=== PATIENT | male | born 1960 | race Caucasian/White ===

== ENCOUNTER 2022-04-22 20:32 | Inpatient (IN) ==
[2022-04-22] MEDS ORDERED: NS 1,000 ML IV 1,000 ML IV ONE (20:49)
--- NOTE | 2022-04-22 20:49 | DR.UPM ---
HPI Time Seen Time Seen by Provider: 04/22/22 20:49 Complaint Chief Complaint Doctors Comments: 62 y/o male presents for evaluation. Ill past week with sinnuscongestion, cough. PCP treated with an antibiotic. + worsened tonight. + fever, chills, confusion, weakness. + incontinent of urine tonight (couldn't get to the bathroom in time). + cough, not productive, + muscle pain, aches. No nausea, vomiting, diarrhea. No rash. Has had recurrent headache over the past few months. Reviewed Nurses Notes Reviewed: Yes Source History Provided: Patient and Family Member ROS Review of Systems Constitutional: Chills, Fever and Weakness Eyes: No Symptoms Reported ENTM: No Symptoms Reported Respiratoy: Non-Productive Cough Cardiovascular: No Symptoms Reported Gastrointestinal/Abdominal: No Symptoms Reported Genitourinary: No Symptoms Reported Neurological: Headache and Weakness Musculoskeletal: Muscle Pain Integumentary: No Symptoms Reported Hematologic/Lymphatic: No Symptoms Reported Psychiatric: No Symptoms Reported All Other Systems: Reviewed and Negative PE Vital Signs Vitals: Temperature 99.5 F Pulse Rate 113 Respiratory Rate 19 Blood Pressure 111/61 O2 Sat by Pulse Oximetry 95 COURSE Treatment Treatment: 62 y/o male with weakness, fever. W/u initiated. Given IV fluids, Po tylenol. Pt is oriented, cooperative. Labs overall acceptable. Is + for Covid. givne IV monoclonal antibodies. Given toradol for fever, discomfort. CXR clear. Recommend admission for further hydration, observation. Discussed with Dr Wong, will admit. ROR Labs Reviewed Laboratory Results Reviewed?: Yes Result Diagrams: 04/22/22 20:45 04/22/22 20:45 Laboratory: WBC 11.5 X10^3/uL (3.6-10.0) H 04/22/22 20:45 RBC 4.99 X10^6/uL (4.7-6.0) 04/22/22 20:45 Hgb 14.8 g/dL (13.5-18.0) 04/22/22 20:45 Hct 42.9 % (42.0-54.0) 04/22/22 20:45 MCV 86.0 fL (80.0-100.0) 04/22/22 20:45 MCH 29.6 pg (27.0-34.0) 04/22/22 20:45 MCHC 34.5 g/dL (33.0-35.0) 04/22/22 20:45 RDW 12.9 % (11.6-16.5) 04/22/22 20:45 Plt Count 216 X10^3/uL (150.0-450.0) 04/22/22 20:45 MPV 7.5 fL (7.4-11.0) 04/22/22 20:45 Neut % (Auto) 82.0 % (42.0-75.0) H 04/22/22 20:45 Lymph % (Auto) 7.8 % (21.0-51.0) L 04/22/22 20:45 [place] % (Auto) 9.5 % (0.0-13.0) 04/22/22 20:45 Eos % (Auto) 0.4 % (0.9-2.9) L 04/22/22 20:45 Baso % (Auto) 0.3 % (0.2-1.0) 04/22/22 20:45 Neut # (Auto) 9.4 x10^3/uL (2.2-4.8) H 04/22/22 20:45 Lymph # (Auto) 0.9 X10^3/uL (1.3-2.9) L 04/22/22 20:45 [place] # (Auto) 1.1 x10^3/uL (0.3-0.8) H 04/22/22 20:45 Eos # (Auto) 0.0 x10^3/uL (0.0-0.2) 04/22/22 20:45 Baso # (Auto) 0.0 X10^3/uL (0.0-0.1) 04/22/22 20:45 Absolute Nucleated RBC 0.0 /100WBC 04/22/22 20:45 Sodium 133 mmol/L (136-145) L 04/22/22 20:45 Corrected Sodium 138 mmol/L (136-145) 04/22/22 20:45 Potassium 4.6 mmol/L (3.5-5.1) 04/22/22 20:45 Chloride 95 mmol/L (98-107) L 04/22/22 20:45 Carbon Dioxide 27.5 mmol/L (21-32) 04/22/22 20:45 BUN 11 mg/dL (7-18) 04/22/22 20:45 Creatinine 1.45 mg/dL (0.70-1.30) H 04/22/22 20:45 Est GFR (MDRD) Af Amer > 60 (>60) 04/22/22 20:45 Est GFR (MDRD) Non-Af 52 (>60) L 04/22/22 20:45 Glucose 294 mg/dL (65-99) H 04/22/22 20:45 Lactic Acid 1.4 mmol/L (0.4-2.0) 04/22/22 20:45 Calcium 9.1 mg/dL (8.5-10.1) 04/22/22 20:45 Corrected Calcium TNP 04/22/22 20:45 Total Bilirubin 0.40 mg/dL (0.2-1.0) 04/22/22 20:45 AST 25 Units/L (15-37) 04/22/22 20:45 ALT 31 Units/L (12-78) 04/22/22 20:45 Alkaline Phosphatase 57 Units/L (46-116) 04/22/22 20:45 Troponin I High Sens 4.8 ng/L (4.0-60.0) 04/22/22 20:45 Total Protein 7.7 g/dL (6.4-8.2) 04/22/22 20:45 Albumin 4.4 g/dL (3.4-5.0) 04/22/22 20:45 Globulin 3.3 g/dL (2.5-4.5) 04/22/22 20:45 Albumin/Globulin Ratio 1.3 Ratio (1.1-2.1) 04/22/22 20:45 Lipase 122 Units/L (73-393) 04/22/22 20:45 Specimen Type Clean catch urine 04/22/22 21:12 Urine Color Yellow (YELLOW) 04/22/22 21: Urine Appearance Clear (CLEAR) 04/22/22 21: Urine pH 8.0 (5.0 - 8.0) 04/22/22 21:12 Ur Specific [place] 1.020 (1.000-1.030) 04/22/22 21:12 Urine Protein Negative (NEGATIVE) 01/12/23 21:12 Urine Glucose (UA) 3+ (NEGATIVE) 04/22/22 21:12 Urine Ketones 1+ (NEGATIVE) 04/22/22 21:12 Urine Blood Negative (NEGATIVE) 04/22/22 21:12 Urine Nitrite Negative (NEGATIVE) 04/22/22 21:12 Urine Bilirubin Negative (NEGATIVE) 04/22/22 21:12 Urine Urobilinogen Normal (NORMAL) 04/22/22 21:12 Ur Leukocyte Esterase Negative (NEGATIVE) 04/22/22 21:12 SARS-CoV-2 (PCR) Positive (NEGATIVE) A 04/22/22 20:51 Influenza Type A (PCR) Negative (NEGATIVE) 04/22/22 20:51 Influenza Type B (PCR) Negative (NEGATIVE) 04/22/22 20:51 RSV (PCR) Negative (NEGATIVE) 04/22/22 20:51 XRAY XRAY Interpreted by: Both X-ray Results: CXR clear. CT head without acute abnormalities EKG Rate: 129 [place]: RAD Rhythm: ST ST: Nonsp Opioid Opioid Risk Tool Total: 0 Total Score Risk Category: Low Risk Copyright: Kelvin MILLER predicting aberrant behaviors Discharge Plan Diagnosis Discharge Problem: COVID, Altered mental status Discharge Plan Patient Disposition: 09 ADMITTED INPATIENT Condition: Stable Prescriptions: No Action glyburide 5 mg tablet 2 tab PO BID benzonatate 200 mg capsule 1 cap PO Q8H PRN clopidogrel 75 mg tablet 1 tab PO QDAY alprazolam 0.5 mg tablet 1 tab PO BID methocarbamol 750 mg tablet 1 tab PO BID PRN hydrocodone-acetaminophen 7.5-325 mg tablet 1 tab PO BID PRN (Reason: pain) pantoprazole 40 mg tablet,delayed release (DR/EC) 1 tab PO BID metformin 1,000 mg tablet 1 tab PO BID gabapentin 300 mg capsule 1 cap PO TID lisinopril-hydrochlorothiazide 20-25 mg tablet 1 tab PO QDAY gqgkowvl-budusoyfp-YV 3.5-10,000-1 mg/mL-unit/mL-% drops,suspension 4 drp OTIC (EAR) TID rosuvastatin 10 mg tablet 1 tab PO QPM metoprolol tartrate 25 mg tablet 1 tab PO QDAY zolpidem 12.5 mg tablet,ext release multiphase 1 tab PO QPM PRN Health Concerns: Post Hospitalization: new medications and changes needed to prevent readmission or further decline. Pt educated and given instructions on all concerns. Plan of Treatment: Continue with present treatment and follow up plan. Pt is to keep follow up appointment as instructed and take medications as ordered. Orders to Discharge Patient Discharge Orders: Transfer (Routine); Ordered 04/22/22 Ordered By: Magdi Landin Follow ups/Referrals Follow ups/Referrals: [facility] [Primary Care Provider] - 3 days
[2022-04-22] MEDS ORDERED: TYLENOL 500 MG TAB EXTRA STRENGTH PO ONE ×2 (20:51→20:56)
[2022-04-22 20:53] VITALS: BMI 25.0
[2022-04-22] MEDS ORDERED: NS 1,000 ML IV 1,000 ML ONE (20:56)
--- NOTE | 2022-04-22 21:00 | EKG ---
Test Reason : confusion Blood Pressure : */* mmHG Vent. Rate : 129 BPM Atrial Rate : 129 BPM P-R Int : 154 ms QRS Dur : 84 ms QT Int : 284 ms P-R-T Axes : 52 240 42 degrees QTc Int : 416 ms Sinus tachycardia Right superior axis deviation Possible Anterior infarct , age undetermined Abnormal ECG No previous ECGs available Confirmed by Cristiano Berumen ([id number]) on 04/25/2022 9:22:26 AM Referred By: Confirmed By: Cristiano Berumen
[2022-04-22 21:07] LABS: BASOPHILS % (AUTO) 0.3 % (0.2-1.0); EOSINOPHILS % (AUTO) 0.4 % (0.9-2.9); HEMATOCRIT 42.9 % (42.0-54.0); HEMOGLOBIN 14.8 g/dL (13.5-18.0); LYMPHOCYTES # (AUTO) 0.9 X10^3/uL (1.3-2.9); LYMPHOCYTES % (AUTO) 7.8 % (21.0-51.0); MEAN CORPUSCULAR HEMOGLOBIN 29.6 pg (27.0-34.0); MEAN CORPUSCULAR HGB CONC 34.5 g/dL (33.0-35.0); MEAN PLATELET VOLUME 7.5 fL (7.4-11.0); MONOCYTES # (AUTO) 1.1 x10^3/uL (0.3-0.8); MONOCYTES % (AUTO) 9.5 % (0.0-13.0); NEUTROPHILS # (AUTO) 9.4 x10^3/uL (2.2-4.8); RED BLOOD COUNT 4.99 X10^6/uL (4.7-6.0); RED CELL DISTRIBUTION WIDTH 12.9 % (11.6-16.5); WHITE BLOOD COUNT 11.5 X10^3/uL (3.6-10.0)
[2022-04-22 21:18] LABS: APPEARANCE,URINE CLEAR (CLEAR); BILIRUBIN,URINE NEGATIVE (NEGATIVE); BLOOD/HEMOGLOBIN,URINE NEGATIVE (NEGATIVE); COLOR,URINE YELLOW (YELLOW); GLUCOSE, URINE 3+ (NEGATIVE); KETONES,URINE 1+ (NEGATIVE); LEUKOCYTE ESTERASE ,URINE NEGATIVE (NEGATIVE); NITRITES,URINE NEGATIVE (NEGATIVE); PROTEIN,URINE NEGATIVE (NEGATIVE); UROBILINOGEN,URINE NORMAL (NORMAL)
[2022-04-22 21:24] LABS: ALANINE AMINOTRANSFERASE 31 Units/L (12-78); ALBUMIN 4.4 g/dL (3.4-5.0); ALKALINE PHOSPHATASE 57 Units/L (46-116); ASPARTATE AMINO TRANSFERASE 25 Units/L (15-37); BLOOD UREA NITROGEN 11 mg/dL (7-18); CALCIUM 9.1 mg/dL (8.5-10.1); CARBON DIOXIDE 27.5 mmol/L (21-32); CHLORIDE 95 mmol/L (98-107); COR NA(FOR HYPERGLY) 138 mmol/L (136-145); CREATININE 1.45 mg/dL (0.70-1.30); LIPASE 122 Units/L (73-393); SODIUM 133 mmol/L (136-145); TOTAL PROTEIN 7.7 g/dL (6.4-8.2); eGFR NON BLACK RACES 52 (>60)
[2022-04-22 21:27] LABS: LACTIC ACID 1.4 mmol/L (0.4-2.0)
[2022-04-22] MEDS ORDERED: TORADOL 30 MG VIAL IVP ONE (21:51)
[2022-04-22] MEDS ORDERED: TORADOL 30 MG VIAL ONE (21:51)
--- NOTE | 2022-04-22 22:01 | CT ---
EXAM: HEAD CT WITHOUT INTRAVENOUS CONTRASTHISTORY: Urinary incontinence. Confusion. Cold and cough 1 week ago.TECHNIQUE: Spiral axial CT images are obtained through the brain without the administration of intravenous contrast. Sagittal and coronal reformatted images are reconstructed.DOSIMETRY: Total DLP 888.54 mGycm; CTDI 48 mGyCOMPARISON: None available.FINDINGS:There is mild diffuse cerebral cortical atrophy. The centrum semiovale, basal ganglia, cerebellum, and brainstem are otherwise grossly unremarkable for a noncontrast CT scan. Nonspecific pineal gland calcification is seen.There is no acute intracranial hemorrhage, discernible acute infarction, mass lesion, midline shift, or hydrocephalus seen. No extra-axial mass or abnormal fluid collection is seen.The calvarium is intact. Status post bilateral antrectomies/infundibulectomies. There is mild chronic right maxillary sinusitis marked by mucoperiosteal thickening. The partially imaged paranasal sinuses, middle ear cavities, and mastoid air cells are otherwise clear.IMPRESSION:1. No intracranial hemorrhage, discernible acute infarction, mass lesions, midline shift, mass effect or hydrocephalus seen.2. Mild diffuse cerebral cortical atrophy.3. Consider followup evaluation with MRI /MRA imaging for further assessment as clinically warranted.4. Status post bilateral antrectomies/infundibulectomies.5. Mild chronic right maxillary sinusitis marked by mucoperiosteal thickening.Electronically signed by: Klarissa Nava (Apr 22, 2022 22:00:05)
[2022-04-22] MEDS ORDERED: BEBTELOVIMAB INJ IVP ONE (22:38)
[2022-04-22] MEDS ORDERED: BEBTELOVIMAB INJ ONE (22:48)
[2022-04-23] MEDS ORDERED: TESSALON PERLES PO PRN (00:32)
[2022-04-23] MEDS: D5 1/2 NS 1,000 ML 1,000 ML IV SCH ×3 (01:00→16:37)
--- NOTE | 2022-04-23 01:12 | RAD ---
HISTORYWIFE STATING PT HAVING TROUBLE HOLDING HIS URINE, CONFUSED AND VERY WEAK. STATES HE WAS TREATED FOR A COLD AND COUGH ABOUT 1 WEEK AGO Relevant Clinical InformationSTUDYCHEST, 1 VIEWCOMPARISONFINDINGSThe trachea is midline. The cardiac silhouette is unremarkable. The lungs are grossly clear without focal infiltrate or effusion. The bony thorax is unremarkable.IMPRESSIONNo acute cardiopulmonary findings .Electronically signed by: Sebastien Mcfadden (Apr 23, 2022 01:11:37)
[2022-04-23] MEDS: LOPRESSOR TAB 25 MG PO SCH ×2 (01:50→09:31)
[2022-04-23] MEDS: PLAVIX PO SCH ×2 (01:51→09:31)
[2022-04-23] MEDS: ZESTORETIC 20/25 MG PO SCH ×2 (01:52→09:30)
[2022-04-23] MEDS: SOLU-Medrol 40 MG VIAL IVP SCH ×3 (05:42→21:21)
[2022-04-23] MEDS: NEURONTIN CAP 300 MG PO SCH ×3 (05:43→21:21)
[2022-04-23] MEDS ORDERED: NovoLIN R (or HumuLIN R) ONE (06:04)
[2022-04-23] MEDS: NovoLIN R (or HumuLIN R) SUBCUT PRN ×5 (06:09→23:10)
[2022-04-23 06:51] LABS: BASOPHILS % (AUTO) 0.3 % (0.2-1.0); EOSINOPHILS % (AUTO) 0.2 % (0.9-2.9); HEMATOCRIT 36.1 % (42.0-54.0); HEMOGLOBIN 12.3 g/dL (13.5-18.0); LYMPHOCYTES # (AUTO) 0.9 X10^3/uL (1.3-2.9); LYMPHOCYTES % (AUTO) 10.8 % (21.0-51.0); MEAN CORPUSCULAR HEMOGLOBIN 29.7 pg (27.0-34.0); MEAN CORPUSCULAR HGB CONC 34.2 g/dL (33.0-35.0); MEAN PLATELET VOLUME 7.9 fL (7.4-11.0); MONOCYTES # (AUTO) 0.9 x10^3/uL (0.3-0.8); MONOCYTES % (AUTO) 10.8 % (0.0-13.0); NEUTROPHILS # (AUTO) 6.3 x10^3/uL (2.2-4.8); NEUTROPHILS % (AUTO) 77.9 % (42.0-75.0); RED BLOOD COUNT 4.15 X10^6/uL (4.7-6.0); RED CELL DISTRIBUTION WIDTH 13.1 % (11.6-16.5); WHITE BLOOD COUNT 8.1 X10^3/uL (3.6-10.0)
[2022-04-23 07:06] LABS: ALANINE AMINOTRANSFERASE 23 Units/L (12-78); ALBUMIN 3.4 g/dL (3.4-5.0); ALKALINE PHOSPHATASE 42 Units/L (46-116); ASPARTATE AMINO TRANSFERASE 19 Units/L (15-37); BLOOD UREA NITROGEN 17 mg/dL (7-18); CALCIUM 7.9 mg/dL (8.5-10.1); CARBON DIOXIDE 26.5 mmol/L (21-32); CHLORIDE 98 mmol/L (98-107); COR NA(FOR HYPERGLY) 139 mmol/L (136-145); CREATININE 1.42 mg/dL (0.70-1.30); SODIUM 133 mmol/L (136-145); TOTAL PROTEIN 6.1 g/dL (6.4-8.2); eGFR NON BLACK RACES 53 (>60)
[2022-04-23] MEDS ORDERED: GLUCOPHAGE ONE ×2 (08:02→19:05)
[2022-04-23] MEDS ORDERED: PATIENT'S HOME MEDICATION (Alprazolam 0.5 mg tablet) PO SCH (09:00)
[2022-04-23] MEDS: PULMICORT NEB TX 0.5 MG NEB SCH ×2 (09:00→21:00)
[2022-04-23] MEDS: PROTONIX TAB 40 MG PO SCH ×2 (09:30→20:33)
[2022-04-23] MEDS: XANAX PO SCH ×2 (09:30→20:32)
[2022-04-23] MEDS: DIABETA PO SCH ×2 (09:30→20:31)
[2022-04-23] MEDS: GLUCOPHAGE PO SCH ×2 (09:30→20:31)
[2022-04-23] MEDS ORDERED: REMDESIVIR 200 MG in NS 250 ML IV 250 ML IV ONE (09:39)
[2022-04-23] MEDS: LOVENOX INJ 30 MG SYR SC SCH ×2 (11:00→20:35)
[2022-04-23] MEDS: DIFLUCAN PO SCH (11:01)
[2022-04-23] MEDS: LANTUS SC SCH (11:01)
[2022-04-23] MEDS: DUONEB 0.5 MG/3 MG (3 mL) NEB SCH ×4 (13:00→21:00)
[2022-04-23] MEDS ORDERED: CRESTOR TAB 10 MG PO ONE (19:05)
[2022-04-23] MEDS ORDERED: NS 1,000 ML IV 1,000 ML ONE (19:35)
[2022-04-23] MEDS ORDERED: SNACK - Diabetic Appropriate PO SCH ×2 (20:00)
[2022-04-23] MEDS: NS 1,000 ML IV 1,000 ML IV SCH (20:30)
[2022-04-23] MEDS: SNACK - Diabetic Appropriate PO SCH (20:33)
[2022-04-23] MEDS: CRESTOR TAB 10 MG PO SCH (20:34)
--- NOTE | 2022-04-24 01:07 | DR.H&P ---
H&P - History & Physical for Day of: H&P Date: 04/22/22 - Chief Complaint Chief Complaint: SINUS CONGESTION, COUGH, BODY ACHES, FEVER, CHILLS, AMS, WEAKNESS, HEADACHE, AND INCONTINENCE OF URINE - History of Present Illness History of Present Illness: IS A 62 YEAR OLD PATIENT OF [facility]. HE PRESENTED TO THE ER WITH COMPLAINTS OF SINUS CONGESTION, COUGH, BODY ACHES, FEVER, CHILLS, AMS, WEAKNESS, HEADACHE, AND INCONTINENCE OF URINE. HE DENIES NAUSEA, VOMITING, DIARRHEA, OR RASH. SYMPTOMS STARTED ABOUT A WEEK AGO. HE WAS TREATED FOR BRONCITIS 1 WEEK AGO WITH ORAL STEROIDS AND ANTIBIOTICS. HIS PMH INCLUDES: CAD, HYPERLIPIDEMIA, HTN, DM II, CARDIAC STENTS, EYE SURGERY. ON ARRIVAL TO THE HOSPTIAL, VITALS WERE: 101.2-145-18-92%RA-121/73. LABS WERE OBTAINED. WBC 11.5, RBC 4.99, HGB 14.8, HCT 42.9, PLT COUNT 216, SODIUM 133, POTASSIUM 4.6, CHLORIDE 95, BUN 11, CREATININE 1.45, GLUCOSE 294, LACTIC ACID 1.4, CALCIUM 9.1, TOTAL BILI 0.40, AST 25, ALT 31, ALK PHOS 57, TOTAL PROTEIN 7.7, ALBUMIN 4.4, LIPASE 122, TROPONIN 4.8. URINALYSIS OBAINED AND IS UNREMARKABLE. COVID-19 POSITIVE. INFLUENZA AND RSV NEGATIVE. BLOOD CULTURES WERE SET UP. A CHEST XRAY WAS OBTAINED AND REVEALED: The trachea is midline. The cardiac silhouette is unremarkable. The lungs are grossly clear without focal infiltrate or effusion. The bony thorax is unremarkable. A BRAIN CT WAS OBTAINED DUE TO AMS AND REVEALED: 1. No intracranial hemorrhage, discernible acute infarction, mass lesions, midline shift, mass effect or hydrocephalus seen. 2. Mild diffuse cerebral cortical atrophy. 3. Consider follow-up evaluation with MRI /MRA imaging for further assessment as clinically warranted. 4. Status post bilateral antrectomies/infundibulectomies. 5. Mild chronic right maxillary sinusitis marked by mucoperiosteal thickening. IN THE ER, HE WAS GIVEN A NORMAL SALINE BOLUS, TYLENOL 1G IV X 1, TORADOL 30MG IV X 1, BEBTELOVIMAB IV X 1. HE WAS ADMITTED TO THE HOSPITAL OBSERVATION STATUS FOR FURTHER EVALUATION AND TREATMENT OF COVID-19, BRONCHOPNEUMONIA, AND ALTERED MENTAL STATUS. - Past Medical History Past Medical History: Coronary Artery Disease, Diabetes, Dyslipidemia, Hypertension - Past Surgical History Surgical History: Angioplasty/Stents - Family History Family Medical History: Diabetes Mellitus - Social History Does patient currently use any type of tobacco product: No Have you used tobacco products in the last 12 months: No Type of Tobacco Use: None Does any household member use tobacco: No Alcohol Use: None Drug Use: None - Medications Home Medications: Penicillins Allergy (Verified 04/22/22 20:54) CONTINUE taking the following medications alprazolam 0.5 mg tablet 1 tab PO BID 04/22/22 [History] benzonatate 200 mg capsule 1 cap PO Q8H PRN 04/22/22 [History] clopidogrel 75 mg tablet 1 tab PO QDAY 04/22/22 [History] gabapentin 300 mg capsule 1 cap PO TID 04/22/22 [History] glyburide 5 mg tablet 2 tab PO BID 04/22/22 [History] hydrocodone 7.5 mg-acetaminophen 325 mg tablet 1 tab PO BID PRN pain 04/22/22 [History] lisinopril 20 mg-hydrochlorothiazide 25 mg tablet 1 tab PO QDAY 04/22/22 [History] metformin 1,000 mg tablet 1 tab PO BID 04/22/22 [History] methocarbamol 750 mg tablet 1 tab PO BID PRN 04/22/22 [History] metoprolol tartrate 25 mg tablet 1 tab PO QDAY 04/22/22 [History] ypbanzlh-nihzxppwv-ofohujvtn 3.5 mg-10,000 unit/mL-1 % ear drops,susp 4 drp otic (ear) TID 04/22/22 [History] pantoprazole 40 mg tablet,delayed release 1 tab PO BID 04/22/22 [History] rosuvastatin 10 mg tablet 1 tab PO QPM cholesterol 04/22/22 [History] zolpidem 12.5 mg tablet,extended release,multiphase 1 tab PO QPM PRN 04/22/22 [History] - Review of Systems Constitutional: Fever, Chills, Weakness Eyes: No Symptoms Reported ENT: Nose Congestion Respiratory: Shortness of Breath, SOB with Excertion Cardiovascular: Light Headedness Gastrointestinal: No Symptoms Reported Genitourinary: No Symptoms Reported Musculoskeletal: No Symptoms Reported Skin: No Symptoms Reported Neurological: Weakness, Confusion - Physical Exam Vital Signs: Temperature 97.8 F Pulse Rate [Left Brachial] 110 Pulse Rate 84 Respiratory Rate 20 Blood Pressure [Left Arm] 102/52 Blood Pressure 110/60 O2 Sat by Pulse Oximetry 93 Oriented: Normal Eyes: Normal Ear: Normal Nose: Discharge Throat: Normal Respiratory: Wheezes Throughout Cardiovascular: Normal : Normal Auscultation: Bowel Sounds: Normal Palpation: Normal Tenderness: Normal Skin: Normal Musculoskeletal: Normal Psychiatric: Normal Mood Description: Calm Affect: Normal Speech Pattern: Clear - Assessment/Plan (1) Bronchopneumonia Status: Acute (2) COVID Status: Acute (3) Altered mental status Status: Acute - Allergies Allergies/Adverse Reactions: Allergies Allergy/AdvReac Type Severity Reaction Status Date / Time Penicillins Allergy Verified 04/22/22 20:54
[2022-04-24] MEDS: NS 1,000 ML IV 1,000 ML IV SCH ×3 (05:28→20:28)
[2022-04-24] MEDS: NEURONTIN CAP 300 MG PO SCH ×3 (05:29→21:12)
[2022-04-24] MEDS: SOLU-Medrol 40 MG VIAL IVP SCH ×3 (05:29→20:27)
[2022-04-24] MEDS: NovoLIN R (or HumuLIN R) SUBCUT PRN ×4 (05:41→21:40)
[2022-04-24 06:50] LABS: BASOPHILS % (AUTO) 0.1 % (0.2-1.0); HEMOGLOBIN 11.4 g/dL (13.5-18.0); LYMPHOCYTES # (AUTO) 0.6 X10^3/uL (1.3-2.9); LYMPHOCYTES % (AUTO) 6.4 % (21.0-51.0); MEAN CORPUSCULAR HEMOGLOBIN 30.4 pg (27.0-34.0); MEAN CORPUSCULAR HGB CONC 35.4 g/dL (33.0-35.0); MEAN CORPUSCULAR VOLUME 85.9 fL (80.0-100.0); MEAN PLATELET VOLUME 7.7 fL (7.4-11.0); MONOCYTES # (AUTO) 0.3 x10^3/uL (0.3-0.8); MONOCYTES % (AUTO) 3.3 % (0.0-13.0); NEUTROPHILS # (AUTO) 8.7 x10^3/uL (2.2-4.8); NEUTROPHILS % (AUTO) 90.2 % (42.0-75.0); RED BLOOD COUNT 3.73 X10^6/uL (4.7-6.0); WHITE BLOOD COUNT 9.7 X10^3/uL (3.6-10.0)
[2022-04-24 07:08] LABS: BAND NEUTROPHILS % 3 % (0-10); PLATELET MORPHOLOGY COMMENT NORMAL (NORMAL)
[2022-04-24 07:16] LABS: SODIUM 134 mmol/L (136-145)
[2022-04-24 07:17] LABS: ALANINE AMINOTRANSFERASE 21 Units/L (12-78); ASPARTATE AMINO TRANSFERASE 16 Units/L (15-37); BLOOD UREA NITROGEN 20 mg/dL (7-18); CALCIUM 7.6 mg/dL (8.5-10.1); CARBON DIOXIDE 24.4 mmol/L (21-32); CHLORIDE 98 mmol/L (98-107); COR NA(FOR HYPERGLY) 140 mmol/L (136-145); CREATININE 1.48 mg/dL (0.70-1.30); eGFR NON BLACK RACES 51 (>60)
[2022-04-24 07:18] LABS: ALBUMIN 3.1 g/dL (3.4-5.0); ALKALINE PHOSPHATASE 38 Units/L (46-116); COR CA(FOR HYPOALB) 8.3 mg/dL (8.5-10.1)
[2022-04-24] MEDS ORDERED: GLUCOPHAGE ONE ×2 (07:55→19:47)
[2022-04-24] MEDS: PULMICORT NEB TX 0.5 MG NEB SCH ×2 (08:58→21:00)
[2022-04-24] MEDS: DUONEB 0.5 MG/3 MG (3 mL) NEB SCH ×4 (08:58→21:00)
[2022-04-24] MEDS: DIABETA PO SCH ×2 (09:07→20:26)
[2022-04-24] MEDS: GLUCOPHAGE PO SCH ×2 (09:08→20:27)
[2022-04-24] MEDS: LOPRESSOR TAB 25 MG PO SCH (09:08)
[2022-04-24] MEDS: ZESTORETIC 20/25 MG PO SCH (09:08)
[2022-04-24] MEDS: PROTONIX TAB 40 MG PO SCH ×2 (09:09→20:26)
[2022-04-24] MEDS: DIFLUCAN PO SCH (09:09)
[2022-04-24] MEDS: PLAVIX PO SCH (09:10)
[2022-04-24] MEDS: XANAX PO SCH ×2 (09:10→20:25)
[2022-04-24] MEDS: LANTUS SC SCH (09:12)
[2022-04-24] MEDS: LOVENOX INJ 30 MG SYR SC SCH (09:14)
[2022-04-24] MEDS: REMDESIVIR 100 MG in NS 250 ML IV 250 ML IV SCH (09:15)
[2022-04-24] MEDS: TYLENOL 500 MG TAB EXTRA STRENGTH PO PRN (17:02)
[2022-04-24] MEDS: CRESTOR TAB 10 MG PO SCH (20:26)
[2022-04-24] MEDS: LOVENOX INJ 40 MG SYR SC SCH (20:27)
[2022-04-24] MEDS: SNACK - Diabetic Appropriate PO SCH (20:28)
[2022-04-24] MEDS: AMBIEN PO PRN (20:28)
[2022-04-24] MEDS ORDERED: LOVENOX INJ 30 MG SYR SC SCH (21:00)
[2022-04-25] MEDS: NS 1,000 ML IV 1,000 ML IV SCH ×5 (03:00→20:01)
[2022-04-25] MEDS: SOLU-Medrol 40 MG VIAL IVP SCH ×4 (03:00→19:26)
[2022-04-25] MEDS: NEURONTIN CAP 300 MG PO SCH ×3 (05:45→21:01)
[2022-04-25] MEDS: NovoLIN R (or HumuLIN R) SUBCUT PRN ×4 (05:51→20:10)
[2022-04-25 06:10] LABS: BASOPHILS % (AUTO) 0.3 % (0.2-1.0); HEMATOCRIT 31.6 % (42.0-54.0); LYMPHOCYTES # (AUTO) 0.7 X10^3/uL (1.3-2.9); LYMPHOCYTES % (AUTO) 5.3 % (21.0-51.0); MEAN CORPUSCULAR HEMOGLOBIN 30.1 pg (27.0-34.0); MEAN CORPUSCULAR HGB CONC 34.7 g/dL (33.0-35.0); MEAN CORPUSCULAR VOLUME 86.5 fL (80.0-100.0); MEAN PLATELET VOLUME 7.5 fL (7.4-11.0); MONOCYTES # (AUTO) 0.4 x10^3/uL (0.3-0.8); NEUTROPHILS # (AUTO) 11.6 x10^3/uL (2.2-4.8); NEUTROPHILS % (AUTO) 91.4 % (42.0-75.0); RED BLOOD COUNT 3.66 X10^6/uL (4.7-6.0); RED CELL DISTRIBUTION WIDTH 13.3 % (11.6-16.5); WHITE BLOOD COUNT 12.7 X10^3/uL (3.6-10.0)
[2022-04-25 06:29] LABS: ALANINE AMINOTRANSFERASE 21 Units/L (12-78); ALKALINE PHOSPHATASE 38 Units/L (46-116); ASPARTATE AMINO TRANSFERASE 16 Units/L (15-37); BLOOD UREA NITROGEN 18 mg/dL (7-18); CALCIUM 7.6 mg/dL (8.5-10.1); CARBON DIOXIDE 23.7 mmol/L (21-32); CHLORIDE 101 mmol/L (98-107); COR CA(FOR HYPOALB) 8.4 mg/dL (8.5-10.1); COR NA(FOR HYPERGLY) 142 mmol/L (136-145); CREATININE 1.26 mg/dL (0.70-1.30); SODIUM 136 mmol/L (136-145); TOTAL PROTEIN 5.8 g/dL (6.4-8.2); eGFR NON BLACK RACES > 60 (>60)
[2022-04-25 06:37] LABS: PLATELET MORPHOLOGY COMMENT NORMAL (NORMAL)
[2022-04-25] MEDS ORDERED: GLUCOPHAGE ONE ×2 (08:17→19:51)
[2022-04-25] MEDS: ZESTORETIC 20/25 MG PO SCH (09:00)
[2022-04-25] MEDS: DIABETA PO SCH ×2 (09:00→20:07)
[2022-04-25] MEDS: LOVENOX INJ 40 MG SYR SC SCH ×2 (09:00→20:09)
[2022-04-25] MEDS: XANAX PO SCH ×2 (09:01→20:08)
[2022-04-25] MEDS: PLAVIX PO SCH (09:01)
[2022-04-25] MEDS: DIFLUCAN PO SCH (09:01)
[2022-04-25] MEDS: PROTONIX TAB 40 MG PO SCH ×2 (09:01→20:08)
[2022-04-25] MEDS: GLUCOPHAGE PO SCH ×2 (09:02→20:07)
[2022-04-25] MEDS: LOPRESSOR TAB 25 MG PO SCH (09:02)
[2022-04-25] MEDS: LANTUS SC SCH (09:03)
[2022-04-25] MEDS: PULMICORT NEB TX 0.5 MG NEB SCH ×2 (09:14→20:15)
[2022-04-25] MEDS: DUONEB 0.5 MG/3 MG (3 mL) NEB SCH ×3 (09:14→20:15)
[2022-04-25] MEDS: REMDESIVIR 100 MG in NS 250 ML IV 250 ML IV SCH (09:20)
--- NOTE | 2022-04-25 09:45 | RAD ---
HISTORYCOVID-19STUDYAP [id number]/12/2023FINDINGSHeart size remains normal. Interval development of bibasal pulmonary infiltrates right greater than left with suspect small right pleural effusion. The upper lungs remain clear.IMPRESSIONDeveloping bibasal infiltrates/pneumonia with small right pleural effusion.Electronically signed by: MICHELA GLOVER (Apr 25, 2022 09:43:58)
[2022-04-25] MEDS: TYLENOL 500 MG TAB EXTRA STRENGTH PO PRN (18:21)
[2022-04-25] MEDS: SNACK - Diabetic Appropriate PO SCH (20:08)
[2022-04-25] MEDS: AMBIEN PO PRN (20:08)
[2022-04-25] MEDS: CRESTOR TAB 10 MG PO SCH (20:08)
[2022-04-25] MEDS: PEPCID TAB 40 MG PO PRN (20:41)
[2022-04-25] MEDS ORDERED: LANTUS SC ONE (21:00)
[2022-04-26] MEDS: SOLU-Medrol 40 MG VIAL IVP SCH ×3 (03:02→16:59)
[2022-04-26] MEDS: NS 1,000 ML IV 1,000 ML IV SCH ×3 (03:03→22:32)
[2022-04-26] MEDS: NEURONTIN CAP 300 MG PO SCH ×3 (05:38→21:09)
[2022-04-26] MEDS: NovoLIN R (or HumuLIN R) SUBCUT PRN ×4 (05:39→21:10)
[2022-04-26 06:23] LABS: BASOPHILS % (AUTO) 0.1 % (0.2-1.0); HEMATOCRIT 31.4 % (42.0-54.0); HEMOGLOBIN 11.1 g/dL (13.5-18.0); LYMPHOCYTES # (AUTO) 0.7 X10^3/uL (1.3-2.9); LYMPHOCYTES % (AUTO) 7.3 % (21.0-51.0); MEAN CORPUSCULAR HEMOGLOBIN 30.5 pg (27.0-34.0); MEAN CORPUSCULAR HGB CONC 35.2 g/dL (33.0-35.0); MEAN CORPUSCULAR VOLUME 86.7 fL (80.0-100.0); MEAN PLATELET VOLUME 7.9 fL (7.4-11.0); MONOCYTES # (AUTO) 0.4 x10^3/uL (0.3-0.8); MONOCYTES % (AUTO) 4.2 % (0.0-13.0); NEUTROPHILS % (AUTO) 88.4 % (42.0-75.0); RED BLOOD COUNT 3.62 X10^6/uL (4.7-6.0); RED CELL DISTRIBUTION WIDTH 12.9 % (11.6-16.5); WHITE BLOOD COUNT 10.2 X10^3/uL (3.6-10.0)
[2022-04-26 06:34] LABS: ALANINE AMINOTRANSFERASE 22 Units/L (12-78); ALKALINE PHOSPHATASE 37 Units/L (46-116); ASPARTATE AMINO TRANSFERASE 15 Units/L (15-37); BLOOD UREA NITROGEN 18 mg/dL (7-18); CALCIUM 7.7 mg/dL (8.5-10.1); CARBON DIOXIDE 25.5 mmol/L (21-32); CHLORIDE 100 mmol/L (98-107); COR CA(FOR HYPOALB) 8.5 mg/dL (8.5-10.1); COR NA(FOR HYPERGLY) 142 mmol/L (136-145); CREATININE 1.24 mg/dL (0.70-1.30); SODIUM 136 mmol/L (136-145); TOTAL PROTEIN 5.7 g/dL (6.4-8.2); eGFR NON BLACK RACES > 60 (>60)
--- NOTE | 2022-04-26 07:31 | RAD ---
HISTORYCOVID, SOBSTUDYCHEST, 1 [id number]/15/2023.TECHNIQUEPA or AP view of the chestFINDINGSCardiac and mediastinal contours are within normal limits. Improved appearance of right base airspace opacity. No definite pleural effusion or pneumothorax.IMPRESSIONImproved right base pneumonia.Electronically signed by: Bernard Marte (Apr 26, 2022 07:29:54)
[2022-04-26] MEDS ORDERED: GLUCOPHAGE ONE ×2 (07:48→19:48)
[2022-04-26] MEDS: LOVENOX INJ 40 MG SYR SC SCH ×2 (08:18→21:10)
[2022-04-26] MEDS: ZESTORETIC 20/25 MG PO SCH (08:18)
[2022-04-26] MEDS: GLUCOPHAGE PO SCH ×2 (08:19→21:07)
[2022-04-26] MEDS: PEPCID TAB 40 MG PO PRN (08:19)
[2022-04-26] MEDS: PLAVIX PO SCH (08:19)
[2022-04-26] MEDS: DIFLUCAN PO SCH (08:20)
[2022-04-26] MEDS: XANAX PO SCH ×2 (08:20→21:07)
[2022-04-26] MEDS: LANTUS SC SCH (08:20)
[2022-04-26] MEDS: LOPRESSOR TAB 25 MG PO SCH (08:20)
[2022-04-26] MEDS: PROTONIX TAB 40 MG PO SCH ×2 (08:20→21:06)
[2022-04-26] MEDS: DIABETA PO SCH ×2 (08:20→21:09)
[2022-04-26] MEDS: REMDESIVIR 100 MG in NS 250 ML IV 250 ML IV SCH (08:21)
[2022-04-26] MEDS: DUONEB 0.5 MG/3 MG (3 mL) NEB SCH ×4 (08:38→21:00)
[2022-04-26] MEDS: PULMICORT NEB TX 0.5 MG NEB SCH ×2 (08:38→21:00)
[2022-04-26] MEDS: LEVAQUIN PREMIX IV 750 MG 750 MG/150 ML BAG IV SCH (09:47)
[2022-04-26] MEDS: SNACK - Diabetic Appropriate PO SCH (20:07)
[2022-04-26] MEDS: TYLENOL 500 MG TAB EXTRA STRENGTH PO PRN (21:08)
[2022-04-26] MEDS: CRESTOR TAB 10 MG PO SCH (21:09)
[2022-04-26] MEDS: AMBIEN PO PRN (21:44)
[2022-04-27] MEDS: SOLU-Medrol 40 MG VIAL IVP SCH (00:41)
[2022-04-27] MEDS: NEURONTIN CAP 300 MG PO SCH (05:09)
[2022-04-27 05:40] LABS: BASOPHILS % (AUTO) 0.1 % (0.2-1.0); HEMATOCRIT 36.1 % (42.0-54.0); HEMOGLOBIN 12.6 g/dL (13.5-18.0); LYMPHOCYTES # (AUTO) 0.9 X10^3/uL (1.3-2.9); LYMPHOCYTES % (AUTO) 7.8 % (21.0-51.0); MEAN CORPUSCULAR HEMOGLOBIN 29.8 pg (27.0-34.0); MEAN CORPUSCULAR HGB CONC 34.9 g/dL (33.0-35.0); MEAN CORPUSCULAR VOLUME 85.5 fL (80.0-100.0); MEAN PLATELET VOLUME 7.5 fL (7.4-11.0); MONOCYTES # (AUTO) 0.6 x10^3/uL (0.3-0.8); MONOCYTES % (AUTO) 4.9 % (0.0-13.0); NEUTROPHILS # (AUTO) 10.4 x10^3/uL (2.2-4.8); NEUTROPHILS % (AUTO) 87.2 % (42.0-75.0); RED BLOOD COUNT 4.22 X10^6/uL (4.7-6.0); RED CELL DISTRIBUTION WIDTH 12.9 % (11.6-16.5)
[2022-04-27 05:50] LABS: ALANINE AMINOTRANSFERASE 24 Units/L (12-78); ALBUMIN 3.1 g/dL (3.4-5.0); ALKALINE PHOSPHATASE 38 Units/L (46-116); ASPARTATE AMINO TRANSFERASE 14 Units/L (15-37); BLOOD UREA NITROGEN 20 mg/dL (7-18); CALCIUM 7.9 mg/dL (8.5-10.1); CARBON DIOXIDE 27.7 mmol/L (21-32); CHLORIDE 101 mmol/L (98-107); COR CA(FOR HYPOALB) 8.6 mg/dL (8.5-10.1); COR NA(FOR HYPERGLY) 141 mmol/L (136-145); CREATININE 1.27 mg/dL (0.70-1.30); SODIUM 137 mmol/L (136-145); TOTAL PROTEIN 5.9 g/dL (6.4-8.2); eGFR NON BLACK RACES > 60 (>60)
[2022-04-27] MEDS: NovoLIN R (or HumuLIN R) SUBCUT PRN ×2 (06:16→11:24)
[2022-04-27] MEDS: NS 1,000 ML IV 1,000 ML IV SCH ×2 (06:17→11:23)
[2022-04-27] MEDS: PULMICORT NEB TX 0.5 MG NEB SCH (08:38)
[2022-04-27] MEDS: DUONEB 0.5 MG/3 MG (3 mL) NEB SCH (08:38)
[2022-04-27] MEDS ORDERED: GLUCOPHAGE ONE (09:15)
[2022-04-27] MEDS: REMDESIVIR 100 MG in NS 250 ML IV 250 ML IV SCH (09:26)
[2022-04-27] MEDS: DIFLUCAN PO SCH (09:27)
[2022-04-27] MEDS: PLAVIX PO SCH (09:27)
[2022-04-27] MEDS: XANAX PO SCH (09:27)
[2022-04-27] MEDS: DIABETA PO SCH (09:27)
[2022-04-27] MEDS: ZESTORETIC 20/25 MG PO SCH (09:27)
[2022-04-27] MEDS: LOPRESSOR TAB 25 MG PO SCH (09:27)
--- NOTE | 2022-04-27 09:27 | MRI ---
HISTORYAMS, COVID +STUDYBRAIN W/O CONCOMPARISONCT head from 04/22/2022.TECHNIQUEMultiplanar multi-sequence MRI of the brain was obtained utilizing standard departmental protocol. Sagittal and axial T1 weighted images were obtained. Axial T2 and flair weighted images were performed as well. Axial diffusion weighted and ADC trace mapping was performed.FINDINGSLimitations: The cranial most portion of the cerebrum is not included in the field of view on the axial sequences.Diffusion imaging: [Normal, no acute infarct.]Susceptibility weighted imaging: [No abnormal susceptibility artifact.]Brain volume: [Appropriate for age.]Ventricles and basal cisterns: [Normal for age.]Extra-axial spaces: [No extra-axial collection.]Cerebral parynchema: [No mass, hematoma, or mass effect.] Mild periventricular T2 and FLAIR bright signal.Pituitary and other sagittal midline structures: [Normal.]Visualized orbits: [Normal.]Paranasal sinuses and mastoid air cells: [Mild right maxillary sinus mucosal thickening.]Bones: [Intact.]Other: [Prior paranasal sinus surgery.]IMPRESSION[No abnormal restricted diffusion to suggest acute infarct. Mild periventricular T2 and FLAIR bright signal may be due to mild small vessel disease.]Electronically signed by: Bernard Marte (Apr 27, 2022 09:26:04)
[2022-04-27] MEDS: GLUCOPHAGE PO SCH (09:28)
[2022-04-27] MEDS: LANTUS SC SCH (09:28)
[2022-04-27] MEDS: PROTONIX TAB 40 MG PO SCH (09:28)
[2022-04-27] MEDS: LOVENOX INJ 40 MG SYR SC SCH (09:30)
[2022-04-27] MEDS: LEVAQUIN PREMIX IV 750 MG 750 MG/150 ML BAG IV SCH (10:43)
[2022-04-27 12:04] VITALS: BP 169/81
--- NOTE | 2022-04-27 13:13 | RAD ---
HISTORYFollow-up COVID, shortness of breathSTUDYChest AP [id number]/16/2023FINDINGSHear t size is normal. Telma are normal. Lung wu are now clear. No pleural effusions are identified. Bony thorax is unremarkable.IMPRESSIONLungs clearElectronically signed by: ABDIFATAH HOPPER (Apr 27, 2022 13:12:28)
== END 2022-04-27 13:15 | disposition home or self-care (01) | DRG 177 ==
LOC: ER 20:32 → MED/SURG 20:32
PROVIDERS: ADMIT Internal Medicine; ATTEND Internal Medicine
DX: R32 Unspecified urinary incontinence; R41.82 Altered mental status, unspecified; R53.1 Weakness; J01.01 Acute recurrent maxillary sinusitis; U07.1 COVID-19; R51.9 Headache, unspecified; E78.2 Mixed hyperlipidemia; J12.82 Pneumonia due to coronavirus disease 2019; I25.10 Atherosclerotic heart disease of native coronary artery without angina pectoris; I10 Essential (primary) hypertension; R06.02 Shortness of breath; R94.31 Abnormal electrocardiogram [ECG] [EKG]; R79.82 Elevated C-reactive protein (CRP); E11.65 Type 2 diabetes mellitus with hyperglycemia